=== PATIENT | male | born 1975 | race Caucasian/White ===

== ENCOUNTER 2017-06-14 15:45 | Emergency (ER) | payer SELFPAY ==
[2017-06-14 15:53] VITALS: BP 152/98
[2017-06-14] MEDS ORDERED: ONDANSETRON DISINTEGRATING 4 MG TAB PO ONE (16:09)
[2017-06-14] MEDS ORDERED: OXYCODONE/APAP 5/325 TAB ONE (16:11)
[2017-06-14] MEDS ORDERED: OXYCODONE/APAP 5/325 TAB PO ONE (16:12)
--- NOTE | 2017-06-14 16:12 | EDPHY ---
H & P Stated Complaint: Right shoulder injury Time Seen by Provider: 06/14/17 16:02 HPI/ROS: CHIEF COMPLAINT: Right shoulder injury HISTORY OF PRESENT ILLNESS: The patient presents to the ED complaining of severe right shoulder pain and decreased range of motion after he tripped and fell last night. The patient denies prior history of shoulder injury or surgery. The patient denies any associated additional injury. The patient specifically denies headache, neck pain, numbness, weakness, difficulty breathing or other concerns. REVIEW OF SYSTEMS: A comprehensive 10 point review of systems is otherwise negative aside from elements mentioned in the history of present illness. Source: Patient Exam Limitations: No limitations - Personal History Current Tetanus Diphtheria and Acellular Pertussis (TDAP): Unsure - Medical/Surgical History Other PMH: healthy - Social History Smoking Status: Current every day smoker - Physical Exam Exam: General Appearance: Alert, no distress Head: Atraumatic Eyes: Pupils equal, round, reactive ENT, Mouth: No hemotympanum, no oral trauma Neck: Nontender, trachea midline Respiratory: No chest wall tender, subcutaneous air, lungs clear bilaterally Cardiovascular: Regular rate and rhythm Abdomen: Abdomen is soft and nontender, pelvis stable Skin: No lacerations, No abrasion Back: No midline T/L/S pain Extremities: Tenderness to palpation over right shoulder with step-off over AC joint Neurological: 5/5 strength noted in the right upper extremity, sensation intact to light touch Constitutional: Initial Vital Signs Temperature (C) 37.1 C 06/14/17 15:47 Heart Rate 71 06/14/17 15:47 Respiratory Rate 16 06/14/17 15:47 Blood Pressure 152/98 H 06/14/17 15:47 O2 Sat (%) 97 06/14/17 15:47 O2 Delivery Mode Room Air Allergies/Adverse Reactions: Penicillins Allergy (Unknown, Verified 06/14/17 15:53) as child Home Medications: Medication Instructions Recorded oxyCODONE/APAP 5/325 [Percocet 1 - 2 tab PO Q6-8PRN PRN #20 tab 06/14/17 5/325 (RX)] Medical Decision Making - Diagnostics Imaging Results: Imaging Impressions Shoulder X-Ray 06/14/17 15:55 Impression: Third degree AC separation. Right shoulder x-ray: Images reviewed by myself, grade 3 AC separation. ED Course/Re-evaluation: The patient presents to the ED with a grade 4 AC separation following mechanical fall. He is neurologically intact without additional injury. The patient has been placed in a sling. He is given a prescription for pain medications. He will be referred to our on-call orthopedic surgeon for follow- up. Differential Diagnosis: Differential diagnosis considered includes fracture, sprain, dislocation - Data Points Medications Given: Discontinued Medications Ondansetron HCl (Zofran Odt) 4 mg PO EDNOW ONE Stop: 06/14/17 16:10 Last Admin: 06/14/17 16:14 Dose: 4 mg Oxycodone/Acetaminophen (Percocet 5/325) 1 tab PO EDNOW ONE Stop: 06/14/17 16:13 Last Admin: 06/14/17 16:13 Dose: 1 tab Departure - Departure Disposition: Home, Routine, Self-Care Clinical Impression: Shoulder separation Qualifiers: Encounter type: initial encounter Laterality: right Qualified Code(s): S43.004A - Unspecified dislocation of right shoulder joint, initial encounter Condition: Good Instructions: Acromioclavicular Separation (ED) Additional Instructions: 1. Please wear sling as needed for comfort. 2. Take Ibuprofen or Motrin 600 mg by mouth three times a day. 3. Percocet as needed for severe pain 4. Please schedule a follow-up appointment with the orthopedic surgeon you have been referred to. Referrals: Henok Clemons MD [Medical Doctor] - As per Instructions Prescriptions: oxyCODONE/APAP 5/325 [Percocet 5/325 (RX)] 1 - 2 tab PO Q6-8PRN PRN #20 tab PRN Reason: for pain
== END 2017-06-14 16:37 | disposition home or self-care (01) ==
DX: S43.004A Unspecified dislocation of right shoulder joint, initial encounter (principal); F17.200 Nicotine dependence, unspecified, uncomplicated; W01.0XXA Fall on same level from slipping, tripping and stumbling without subsequent striking against object, initial encounter
CPT/HCPCS: A4565